=== PATIENT | male | born 1950 ===

== ENCOUNTER 2023-07-10 12:39 | Emergency (ER) | payer BC ==
[2023-07-10 13:46] LABS: ALT (SGPT) 57 U/L (8-55); AST (SGOT) 89 U/L (5-34); Alkaline Phosphatase 353 U/L (40-110); Anion Gap 13 mmol/L (10-20); BUN (Urea Nitrogen) 18 mg/dL (8.4-25.7); Bilirubin, Total 0.7 mg/dL (0.2-1.2); Calc. Creatinine Clearance 0 mL/min (70-130); Calcium 8.4 mg/dL (7.8-10.44); Carbon Dioxide 25 mmol/L (23-31); Chloride 105 mmol/L (98-107); Estimated GFR 80; Globulin 2.9 g/dL (2.4-3.5); Glucose 91 mg/dL (83-110); Protein, Total 5.9 g/dL (5.8-8.1); Sodium 139 mmol/L (136-145)
[2023-07-10 13:58] LABS: PTT 29.9 sec (22.0-33.0); Prothrombin Time 10.7 sec (9.5-12.1)
[2023-07-10 14:08] LABS: #Basophils 0.1 10x3/uL (0.0-0.2); #Eosinphils 0.4 10x3/uL (0.0-0.5); #Monocytes 0.5 10x3/uL (0.0-1.1); #Neutrophils 2.4 10x3/uL (1.5-8.4); %Basophils 1.5 % (0.0-2.0); %Eosinophils 8.9 % (0.0-6.0); %Lymphocytes 19.3 % (18.0-47.0); %Monocytes 11.6 % (0.0-10.0); %Neutrophils 58.5 % (40.0-75.0); Hematocrit 41.7 % (38.8-50.0); Mean Corpuscular HGB CONC 33.6 g/dL (32.0-36.0); Mean Corpuscular Volume 89.5 fl (81.2-95.1); Mean Platelet Volume 12.4 fl (7.4-10.4); Platelet Count 107 10x3/uL (150-450); RBC Distribution Width 15.2 % (11.5-14.5); Red Blood Cell (RBC) Count 4.66 10x6/uL (4.32-5.72)
[2023-07-10 15:08] LABS: BF Color Yellow; Clarity Clear (Clear)
[2023-07-10 16:16] LABS: Tube # EDTA
[2023-07-10 16:26] LABS: BF Segmented Neutrophils 19 %; Cell Count Non Hematic 65 %; Lymphocytes 16 %
== END 2023-07-10 14:38 | disposition home or self-care (01) ==
LOC: CSHERS 12:39
DX: C80.1 Malignant (primary) neoplasm, unspecified (principal); R18.0 Malignant ascites; F17.220 Nicotine dependence, chewing tobacco, uncomplicated; I10 Essential (primary) hypertension
CPT/HCPCS: 36415; 80053; 85025; 85610; 85730; 89051; 99283